=== PATIENT | male | born 1950 | race Caucasian/White ===

== ENCOUNTER 2017-01-16 12:27 | Day surgery (SDC) | payer OTHER ==
[~2017-01-16 12:27] MED LIST: ASPI-516 CHEW; ESOM1CAP16 PO; LEVO200T4 PO; LISI-519 PO; LOVA40TA PO
[2017-01-16] MEDS ORDERED: MULTTAB67 PO (13:45)
[2017-01-16 13:49] VITALS: BP 134/77; PULSE 72; RESP 18; TEMP 98.2; O2SAT 98
--- NOTE | 2017-01-16 13:57 | PD.VS.PN ---
Pre-operative Note Pre-operative diagnosis: R LE venous stasis ulcer Planned procedure: R BK GSV RFA Interval History: Pt has been feeling well, still having pressure that now extends up his leg. Labs: none needed Blood: none needed Orders: NPO Ancef 2g IV OCTOR Post-operative destination: DOCU Operative site marked: Yes Consent: Informed consent has been obtained from Abdiaziz Camargo. I have explained the procedure in detail and discussed the risks, benefits, and potential complications. All questions have been answered. Delta Patel MD Jan 16, 2017 13:57
[2017-01-16] MEDS ORDERED: MIDAZOLAM HCL 2 MG/2 ML VIAL ONE ×3 (14:06→14:25)
[2017-01-16] MEDS ORDERED: SODIUM BICARBONATE 8.4% INJ 50 ML ONE (14:07)
[2017-01-16] MEDS ORDERED: LIDOCAINE HCL 1% PF 30 ML VIAL ONE ×2 (14:07→14:14)
[2017-01-16] MEDS ORDERED: ceFAZolin INJ 1,000 MG VIAL ONE (14:07)
--- NOTE | 2017-01-16 14:41 | HHI.PR ---
Immediate Post Op Note Procedure Date: Jan 16, 2017 Pre Op Diagnosis: R LE venous insufficiency Post Op Diagnosis: R LE venous insufficiency Surgeon: Delta Patel [employer] Electrician(s): none Procedure: R BK GSV RFA Findings: successful ablation Complications: none Specimen(s) removed: none Estimated blood loss: 5mL Anesthesia: MAC Drains: None Fluids: 300 IVF Patient to: Other (DOCU) Patient Condition: Good Implant/Devices: SEE IMPLANT LOG (if applicable) Date/Time of Procedure: SEE SURGICAL CARE RECORD Delta Patel MD Jan 16, 2017 14:41
--- NOTE | 2017-01-17 06:07 | MP ---
cc: DELTA PATEL MD DATE OF SURGERY 01/16/2017 PREOPERATIVE DIAGNOSIS Right lower extremity venous insufficiency and venostasis ulcer. POSTOPERATIVE DIAGNOSIS Right lower extremity venous insufficiency and venostasis ulcer. PROCEDURE Right below-knee greater saphenous vein ablation. MEDICATIONS Delta Patel MD ANESTHESIA Local with sedation. INDICATION Mr. Camargo is a 66-year-old gentleman with a venous stasis ulcer that is refractory to compression therapy. He is taken to the operating room for vein ablation. DESCRIPTION OF PROCEDURE Informed consent was obtained from the patient. He was taken to the operating room and placed supine on the operating room table. Appropriate time-out was taken to ensure the identify of the patient, the operative site and the planned procedure. The administration of 2 grams of Ancef was initiated prior to skin incision and will be discontinued after a single preoperative dose. Everyone in the room agreed with the time-out and we proceeded. His right leg was prepped and draped with the patient in the reverse Trendelenburg position. Local anesthesia was infiltrated above the greater saphenous vein, just above the medial malleolus and this vein was accessed with a 21-gauge micropuncture needle. This was exchanged using Seldinger technique for a 7-Chadian sheath and the VNUS closure Vas catheter was then advanced up to the mid-thigh. The patient was placed in reverse Trendelenburg position and the saphenous vein was anesthetized with yash-saphenous tumescence and the vein was segmentally ablated. The catheter and sheath were removed with pressure held to achieve hemostasis. There were no complications. I was present and scrubbed for the entire procedure. At the end of the case the patient's leg was wrapped in Wicho bandage and the patient was transported to the recovery room in stable condition. Delta Patel MD RJF/SSB /3:17 PM /5:57 AM
== END 2017-01-16 16:49 | disposition home or self-care (01) ==
LOC: HDIC 12:27 → HDOC 12:27
PROVIDERS: ATTEND Surgery
DX: I87.2 Venous insufficiency (chronic) (peripheral) (principal); L97.829 Non-pressure chronic ulcer of other part of left lower leg with unspecified severity
CPT/HCPCS: 36475; 99152; 99153; J0690; J2250; J3010